=== PATIENT | female | born 1995 | race African-American/Black ===

== ENCOUNTER 2016-10-02 18:30 | Emergency (ER) | payer OTHER ==
[~2016-10-02] VITALS: Ht 158.8 cm; Wt 48.5 kg
[2016-10-02 18:31] VITALS: BP 117/69; PULSE 92; RESP 16; TEMP 98.8; O2SAT 100
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
[2016-10-02] MEDS ORDERED: ROBA750T PO (20:00)
[2016-10-02] MEDS ORDERED: MOBI15TA PO (20:00)
== END 2016-10-02 20:27 | disposition home or self-care (01) ==
LOC: EDSEX → NEPD 18:30
DX: S16.1XXA Strain of muscle, fascia and tendon at neck level, initial encounter (principal); R51 Headache; V49.50XA Passenger injured in collision with unspecified motor vehicles in traffic accident, initial encounter
CPT/HCPCS: 72040; 99284